=== PATIENT | female | born 1965 | race Caucasian/White ===

== ENCOUNTER 2024-10-04 19:48 | Emergency (ER) | payer BC, SELFPAY ==
[2024-10-04 19:52] VITALS: BP 133/90
[2024-10-04 20:05] LABS: % Basophils 0.6 % (0-2); % Eosinophils 1.2 % (0-6); % Immature Granulocytes 0.4 % (0-0.5); % Lymphocytes 14.3 % (20.5-51.1); % Monocytes 5.6 % (1.7-9.3); % Neutrophils 77.9 % (42.2-75.2); Absolute Basophils 0.1 10^3/uL (0-0.2); Absolute Eosinophils 0.1 10^3/uL (0-0.7); Absolute Lymphocytes 1.6 10^3/uL (1.2-3.4); Absolute Monocytes 0.6 10^3/uL (0.1-0.6); Absolute Neutrophils 8.5 10^3/uL (1.4-6.5); Hematocrit 40.8 % (37.0-47.0); Hemoglobin 14.2 g/dL (12.0-16.0); Mean Corp Hgb Conc. 34.8 g/dL (33.0-37.0); Mean Corpuscular Hgb 28.5 pg (27.0-31.0); Mean Corpuscular Volume 81.9 fL (81.0-99.0); Mean Platelet Volume 9.2 fL (7.4-10.4); Nucleated Red Blood Cells % 0 %; Platelet Count 216 10^3/uL (130-400); Red Blood Cell Count 4.98 10^6/uL (4.20-5.40); Red Cell Dist. Width 12.3 % (11.5-14.5); White Blood Cell Count 10.9 10^3/uL (4.8-10.8)
[2024-10-04 20:18] LABS: ALT (SGPT) 22 U/L (0-35); AST (SGOT) 27 U/L (14-36); Albumin 4.4 g/dl (3.5-5.0); Alkaline Phosphatase 95 U/L (38-126); Blood Urea Nitrogen 18 mg/dl (7-17); Calcium 9.7 mg/dl (8.4-10.2); Carbon Dioxide 27 mmol/L (22-30); Chloride 101 mmol/L (98-107); Glucose 104 mg/dl (70-99); Lipase 96 U/L (23-300); Sodium 135 mmol/L (135-145); Total Bilirubin 0.4 mg/dl (0.2-1.3); Total Protein 6.9 g/dl (6.3-8.2); eGFR > 60.00
--- NOTE | 2024-10-04 20:39 | ED.GENMED ---
History of Present Illness
General
Chief Complaint: Abdominal Symptoms
Source: patient
Exam Limitations: none
Time Seen by Provider: 10/04/24 20:27
Nursing documentation reviewed up to this point in time: agreed with
History of Present Illness
History of Present Illness:
Patient presents to ED secondary to 3-day history of persistent nausea, vomiting, and diarrhea, along with 24-hour history of abdominal cramping sensation. Denies fever or chills. Denies trauma. Denies chest pain or shortness of breath. Denies
dizziness. Denies sore throat. Denies coughing. Of note, patient states that she returned from cruise 5 days ago. Soon upon returning home, patient's spouse tested positive for COVID-19. Patient herself tested and it was negative.
Review of Systems
Review of Systems
Allergies reviewed?: Yes
All Other Systems: ROS reviewed and negative except as documented in HPI and ROS
Constitutional: Reports no symptoms; Denies fever
Respiratory: Reports no symptoms; Denies cough or trouble breathing
Cardiac: Reports no symptoms
ABD/GI: Reports abdominal pain, nausea, vomiting and diarrhea
: Reports no symptoms
Musculoskeletal: Reports no symptoms
Skin: Reports no symptoms
Neurological: Reports no symptoms
Phy Exam
Physical Exam
Physical Exam:
Physical Exam
General: mild distress, not acutely ill. afebrile
Head: nc/at. eomi
Neck: supple. normal range of motion.
Heart: s1/s2 regular rate and rhythm, no murmur.
Lungs: no acute respiratory distress. clear bilaterally
Abdomen: normal bowel sounds. not tender. no distention
Neuro: alert and oriented x 3. no focal neurological deficits.
Skin: no rash
Psychiatric: well kept. interactive and cooperative
Extremities: no edema. no calf tenderness.
Course
Orders/Labs/Results
Orders:
Orders
10/04/24 19:58
Complete Blood Count/With Diff Urgent
Comprehensive Metabolic Panel Urgent
Lipase Urgent
Magnesium Urgent
Comment: ADD ON
10/04/24 20:35
Add On- LAB Urgent
Tests Added?: magnesium
0.9% Sodium Chloride 1000 ml [Nss] 1,000 ml IV BOLUS
Ketorolac [Toradol] 15 mg IV NOW STA
Pantoprazole [Protonix IV] 40 mg IV NOW STA
10/04/24 20:51
0.9% Sodium Chloride 500 ml [Nss] 500 ml IV BOLUS
10/04/24 21:21
COVID-19 Antigen Urgent
Source: Nasal Swab
Influenza A+B Rapid Molecular Urgent
PORTER Source: Nasal Swab
Specimen Description:
10/04/24 22:32
Ondansetron Orally Disint [Zofran Odt (Orally Disintegrating)] 4 mg PO NOW STA
Abnormal Lab Results
10/04/24
19:58
WBC 10.9 H 10^3/uL
(4.8-10.8)
Absolute Neuts (auto) 8.5 H 10^3/uL
(1.4-6.5)
Neutrophils % 77.9 H %
(42.2-75.2)
Lymphocytes % 14.3 L %
(20.5-51.1)
BUN 18 H mg/dl
(7-17)
Glucose 104 H mg/dl
(70-99)
10/04/24 19:58
10/04/24 19:58
Vital Signs
Initial and Last Documented VS:
Initial Vital Signs
Temp Pulse Resp BP Pulse Ox
98.3 F 72 18 133/90 99
10/04/24 19:52 10/04/24 19:52 10/04/24 19:52 10/04/24 19:52 10/04/24 19:52
Last Documented Vital Signs
Temp Pulse Resp BP Pulse Ox
98.3 F 91 15 104/62 99
10/04/24 19:52 10/04/24 22:30 10/04/24 22:30 10/04/24 22:30 10/04/24 22:30
MDM/Problems Addressed
MDM/Problems Addressed:
Patient reports significant improvement symptoms after treatment. Repeat abdominal exam: Soft and nontender. History and exam consistent with likely nonspecific viral illness. However, with known GI side effects with Zepbound, did caution patient
about discussion with her primary care physician, if she continues or has recurrent similar GI symptoms in the future.
Patient will be advised to continue hydration at home along with PCP follow-up as needed, or return to ED with worsening symptoms. Patient expresses understanding at time of discharge.
*Critical Care Note
Total Time (30-74mins, 75-104mins- exclusive of procedures): Not Applicable
ED Attending Note
-
Portions of this chart may have been created with voice recognition software.� Occasional wrong word or��sound alike� substitutions may have occurred due to the inherent limitations of voice recognition software.
Discharge Plan
Departure
Patient Disposition: Home (Routine Discharge)
Date of Disposition: 10/04/24
Time of Disposition: 22:33
Patient with high blood pressure during this ER visit?: No
Condition: Good
Discharge Problem:
Gastroenteritis
Instructions: Viral gastroenteritis in adults
Prescriptions:
New
ondansetron 4 mg Tablet,Disintegrating
4 mg PO TIDPRN PRN (Reason: nausea/vomiting) Qty: 8 0RF
Referrals:
UNKNOWN - PT DOES,NOT KNOW [Family Provider] -
Activity Restrictions/Additional Instructions:
As discussed, please follow-up with your primary care physician with any further concerns. Your prescription has been sent electronically to [facility] pharmacy in [place].
Interventions
Interventions:
*General Assessment Last Done: 10/04/24 19:52
ED- Fall Risk Assessment Last Done: 10/04/24 21:23
*Nursing Disposition Last Done: 10/04/24 22:50
KB-Aetjmk-Uiihanorki Assessment Last Done: 10/04/24 21:23
Discharge Date and Time
Discharge Date/Time: 10/04/24 22:50
Print Language: ROMANIAN
[2024-10-04] MEDS: NSS 1000 IV (21:10)
[2024-10-04] MEDS: NSS 500 IV (21:11)
[2024-10-04] MEDS: TORADOL 15 MG IV (21:11)
[2024-10-04] MEDS: PROTONIX IV 40 MG IV (21:11)
[2024-10-04 21:16] LABS: Magnesium 2.1 mg/dl (1.6-2.3)
[2024-10-04 21:23] VITALS: BMI 25.4
[2024-10-04 21:44] LABS: COVID-19 Antigen Negative (Negative)
[2024-10-04 22:30] VITALS: BP 104/62
[2024-10-04] MEDS: ZOFRAN ODT (ORALLY DISINTEGRATING) 4 MG PO (22:39)
== END 2024-10-04 22:50 | disposition home or self-care (01) ==
LOC: EMR 19:48
PROVIDERS: Emergency Medicine; EMERGENCY PHYSICIAN Emergency Medicine
DX: K52.9 Noninfective gastroenteritis and colitis, unspecified (principal)
CPT/HCPCS: 96374; 96375; 99284; 80053; 83690; 83735; 85025; 87502; 87811